=== PATIENT | female | born 1975 | race Hispanic/Latino ===

== ENCOUNTER 2018-03-03 13:36 | Outpatient (CLI) | payer BC | END 2018-03-03 13:37 | disposition home or self-care (01) | LOC: BICMAMMO 13:36 | PROVIDERS: ATTEND Physician Assistant | DX: Z12.31 Encounter for screening mammogram for malignant neoplasm of breast (principal); R92.1 Mammographic calcification found on diagnostic imaging of breast | CPT/HCPCS: 77063; 77067 ==

== ENCOUNTER 2018-03-04 10:44 | Outpatient (CLI) | payer BC ==
--- NOTE | 2018-03-04 11:50 | ULT ---
PELVIC ULTRASOUND: DATE: 03/04/18. HISTORY: Pelvic pain. COMPARISON: 01/03/10. FINDINGS: Multiple transabdominal and endovaginal sonographic imaging of the pelvis are obtained. The uterus again demonstrates a normal sonographic appearance measuring 10.4 cm x 5 cm x 6 cm. The endometrial stripe measures 1 cm in thickness, which is within normal limits for a normal menstru ating female patient. No fluid or fluid collection is seen in the endometrial canal. The right ovary measures 3 cm x 1.5 cm x 2.2 cm with the left ovary measuring 3.3 cm x 4.4 cm x 2.9 c m. There is a 2.7 cm anechoic well-circumscribed cystic structure within the left ovary demonstrating ch aracteristics suggestive of a small ovarian cyst. Doppler evaluation of each ovary with spectral analysis and color flow evaluation demonstrates arteri al and venous flow in each ovary. No free fluid is seen in the cul-de-sac. IMPRESSION: 1. Small left ovarian cyst. 2. Normal-appearing uterus and right ovary. POS: [facility]
== END 2018-03-04 10:45 | disposition home or self-care (01) ==
LOC: EKG 10:44
PROVIDERS: ATTEND Physician Assistant
DX: R07.9 Chest pain, unspecified (principal); R10.2 Pelvic and perineal pain; N83.202 Unspecified ovarian cyst, left side
CPT/HCPCS: 76856; 93017

== ENCOUNTER 2018-04-17 09:07 | Emergency (ER) | payer BC | END 2018-04-17 09:46 | disposition home or self-care (01) | LOC: ERS 09:07 | DX: J40 Bronchitis, not specified as acute or chronic (principal); E11.9 Type 2 diabetes mellitus without complications; Z79.84 Long term (current) use of oral hypoglycemic drugs | CPT/HCPCS: 99283 ==

== ENCOUNTER 2018-04-20 12:30 | Outpatient (CLI) | payer BC ==
--- NOTE | 2018-04-20 13:58 | RAD ---
CHEST TWO VIEWS: HISTORY: Cough. Bronchitis. COMPARISON: 05/30/2013 FINDINGS: Heart size and mediastinum are within normal limits. Lungs are clear of infiltrates. No significant bony findings. IMPRESSION: No active intrathoracic disease. POS: [facility]
== END 2018-04-20 12:31 | disposition home or self-care (01) ==
LOC: BICRAD 12:30
PROVIDERS: ATTEND Physician Assistant
DX: J40 Bronchitis, not specified as acute or chronic (principal)
CPT/HCPCS: 71046

== ENCOUNTER 2018-07-14 20:24 | Emergency (ER) | payer BC ==
--- NOTE | 2018-07-14 21:32 | RAD ---
TWO VIEWS CHEST 07/14/18 COMPARISON: 04/20/18 HISTORY: Cough. FINDINGS: There is no pneumothorax, pleural fluid, focal consolidation or alveolar edema. Heart and mediastinal contours appear grossly unremarkable. IMPRESSION: No acute findings. POS: [facility]
--- NOTE | 2018-07-14 22:50 | RAD ---
FRONTAL AND LATERAL IMAGING OF THE NECK 07/14/18 COMPARISON: None. HISTORY: Evaluate for foreign body. FINDINGS: Frontal and lateral imaging o the neck demonstrate no radiopaque foreign body. Epiglottis not well as sessed as it abuts and/or is obscured by soft tissue density in the submandibular region. IMPRESSION: No radiopaque foreign body identified. POS: [facility]
== END 2018-07-14 23:59 | disposition home or self-care (01) ==
LOC: ERS 20:24
DX: R05 Cough (principal); E11.9 Type 2 diabetes mellitus without complications
CPT/HCPCS: 70360; 71046; 87081; 87430

== ENCOUNTER 2018-08-20 07:57 | Outpatient (CLI) | payer BC ==
--- NOTE | 2018-08-20 09:18 | ULT ---
COMPLETE ABDOMEN SONOGRAM: HISTORY: Abdominal pain. FINDINGS: The gallbladder has a normal appearance without evidence of stones. The common duct is 0.4 cm. The liver is diffusely echogenic without focal mass or intrahepatic biliary dilatation. No free fluid. The spleen, kidneys, and visualized portions of the abdominal aorta, IVC, and pancreas have a normal sonographic appearance. IMPRESSION: 1. No evidence of gallstones or biliary obstruction. 2. Hepatosteatosis. POS: [facility]
--- NOTE | 2018-08-20 10:25 | ULT ---
ELVIC ULTRASOUND: HISTORY: Pelvic pain. FINDINGS: Real-time imaging of the pelvis was obtained both transabdominally as well as with an endovaginal pro be. This shows a uterus measuring 4.7 x 5.5 x 9.3 cm. Endometrium measures in the 7 mm range. The right ovary demonstrates a slightly elongated slightly irregularly shaped cyst measuring 2.6 x 2. 8 cm. The left ovary is normal in appearance. There is a small follicle involving the left ovary. DOPPLER EVALUATION WITH SPECTRAL ANALYSIS: Normal flow is shown to the adnexa. IMPRESSION: 1. A 2.6 x 2.8 cm right ovarian cyst. 2. Incidental note is made of a small nabothian cyst. POS: [facility]
== END 2018-08-20 07:58 | disposition home or self-care (01) ==
LOC: BICULT 07:57
PROVIDERS: ATTEND Physician Assistant
DX: R10.30 Lower abdominal pain, unspecified (principal); K76.0 Fatty (change of) liver, not elsewhere classified; N83.201 Unspecified ovarian cyst, right side
CPT/HCPCS: 76700; 76856

== ENCOUNTER 2019-07-12 15:25 | Emergency (ER) | payer BC ==
[2019-07-12] MEDS ORDERED: Iopamidol-370 76% 500 ML 1 ML ONE (15:30)
--- NOTE | 2019-07-12 16:20 | ULT ---
Ultrasound of theright upper quadrant: 07/12/2019 COMPARISON:Abdominal ultrasound 08/20/2018 HISTORY:Nausea vomiting and diarrhea TECHNIQUE: Multiplanar grayscale sonographic imaging of theright upper quadrant FINDINGS:Hepatic parenchyma is mildly heterogeneous and echogenic, which may signify steatosis. No ga llbladder wall thickening or pericholecystic fluid. No gallstones are noted. Right kidney measures 13.7 cm in craniocaudal dimension and demonstrates no stone or mass. Minimal pr ominence of the intrarenal collecting system is noted, similar when compared to the prior examination. The pancreas is obscured by bowel gas. The common bile duct measures 2-3 mm, within normal limits. IMPRESSION:No evidence for cholelithiasis, cholecystitis, or biliary dilatation.
[2019-07-12 16:30] LABS: #Eosinphils 0.2 thou/uL (0.0-0.7); #Lymphocytes 2.2 thou/uL (1.20-3.40); #Monocytes 0.4 thou/uL (0.11-0.59); #Neutrophils 5.3 thou/uL (1.40-6.50); %Basophils 0.5 % (0.0-1.0); %Eosinophils 2.4 % (0.0-10.0); %Lymphocytes 27.2 % (21.0-51.0); %Monocytes 4.3 % (0.0-10.0); %Neutrophils 65.5 % (42.0-75.0); Hemoglobin 10.6 g/dL (12.0-16.0); Mean Corpuscular HGB CONC 32.2 g/dL (32.0-36.0); Mean Corpuscular Hemoglobin 19.3 pg (27.0-31.0); Mean Corpuscular Volume 59.8 fL (78.0-98.0); Mean Platelet Volume 7.2 fL (7.4-10.4); Platelet Count 169 thou/uL (130-400); RBC Distribution Width 18.3 % (11.5-14.5); Red Blood Cell (RBC) Count 5.53 mill/uL (4.20-5.40); White Blood Cell (WBC) Count 8.1 thou/uL (4.8-10.8)
[2019-07-12 16:33] LABS: BHCG - Serum Negative (NEGATIVE); Pregs Control Background? CLEAR/WHITE (CLR/WHITE); Pregs Control Bar Appear? YES (CONTROL BAR)
[2019-07-12 16:46] LABS: ALT (SGPT) 26 U/L (8-55); AST (SGOT) 16 U/L (5-34); Albumin 4.2 g/dL (3.5-5.0); Alkaline Phosphatase 123 U/L (40-110); Anion Gap 15 mmol/L (10-20); BUN (Urea Nitrogen) 8 mg/dL (7.0-18.7); Bilirubin, Total 0.4 mg/dL (0.2-1.2); CK (CPK) 41 U/L (29-168); Calc. Creatinine Clearance 0 mL/min (70-130); Calcium 9.6 mg/dL (7.8-10.44); Carbon Dioxide 26 mmol/L (22-29); Chloride 96 mmol/L (98-107); Estimated GFR-MDRD 79; Globulin 3.5 g/dL (2.4-3.5); Glucose 366 mg/dL (70-105); Lipase 35 U/L (8-78); Protein, Total 7.7 g/dL (6.0-8.3); Sodium 133 mmol/L (136-145)
[2019-07-12 17:06] LABS: MDiff Complete? YES; Microcytosis MODERATE=15-30 cells (100X) (0-5/hpf); Platelet Morphology Comment Appears Adequate; Polychromasia SLIGHT = 2-3 cells (100X) (0-2/hpf); Reflex for Review?? YES; Stomatocytes SLIGHT = 2-5 cells (100X) (0-1/hpf)
[2019-07-12] MEDS ORDERED: Ondansetron ODT 4 MG TAB ONE (18:36)
--- NOTE | 2019-07-12 18:49 | RAD ---
Exam: Chest one view HISTORY:Chest pain. Comparison: 07/14/2018 FINDINGS: Cardiac silhouette: Normal Aorta: Unremarkable Pulmonary vessels: Normal Costophrenic angles: Clear LUNGS: No masses or consolidation. Diminished lung volumes, likely due to a poor inspiratory effort. Pneumothorax: None Osseous abnormalities: None IMPRESSION: No acute cardiopulmonary process.
[2019-07-12] MEDS ORDERED: Mag-Al 1200 mg/1200 mg/30 ML UDCUP ONE (19:44)
[2019-07-12] MEDS ORDERED: Lidocaine Viscous Sol 2% 15 ml UD Cup ONE (19:44)
[2019-07-12 19:52] LABS: Bilirubin Negative (Negative); Blood, Urine Negative (Negative); Clarity Clear (Clear); Glucose, Urine (Dipstick) Greater than 1000 mg/dL (Negative); Leukocyte 500 Leu/uL (Negative); Nitrite Negative (Negative); Protein, Urine (Dipstick) 10 mg/dL (Neg-Trace); Urobilinogen Normal mg/dL (Less than 2); WBC/HPF Greater than 50 HPF (0-3)
[2019-07-12 19:58] LABS: Bacteria/HPF 1+ HPF (None Seen); RBC/HPF 0-3 HPF (0-3)
--- NOTE | 2019-07-12 21:50 | CT ---
EXAM: CT ABDOMEN AND PELVIS HISTORY: Right upper quadrant pain COMPARISON: None. Procedure: Multiple contiguous axial images were obtained and a CT of the abdomen and pelvis with IV contrast. C oronal reformats were performed. FINDINGS: Lower Chest: Dependent atelectatic change Vessels: Normal caliber aorta Heart: Normal heart size Abdomen: Portal vein:Patent Gallbladder: No calcified gallstones. Normal caliber wall. Liver: within normal limits. Pancreas: within normal limits. Spleen: within normal limits. Adrenals: within normal limits. Kidneys: Symmetric enhancement. No obstructive uropathy. Peritoneum: No ascites or free air, no fluid collection. Bowel: Limited evaluation due to the lack of oral contrast administration. No evidence of bowel obstr uction. Ileocecal junction is unremarkable. Normal caliber appendix. Scattered fecal material in a nondistended, nondilated colon. Diverticulosis. No diverticulitis. Mesentery and Retroperitoneum: No enlarged mesenteric or retroperitoneal lymph nodes. Abdominal Wall: Umbilical hernia containing mesenteric fat. Pelvis: Reproductive Organs: Uterus and left adnexa are unremarkable. Hypodensity in the right adnexa measuri ng 3.0 x 2.8 cm with an attenuation coefficient of 25 Hounsfield units. Complex right ovarian cyst is favored. Pelvis: No mass, lymphadenopathy, free air or free fluid. Bladder: within normal limits. Bones: within normal limits. IMPRESSION: 1. Complex right ovarian cyst. Follow-up ultrasound in 8 weeks to ensure resolution 2. Normal caliber appendix.
== END 2019-07-12 22:37 | disposition home or self-care (01) ==
LOC: ERS 15:25
DX: N39.0 Urinary tract infection, site not specified (principal); N83.201 Unspecified ovarian cyst, right side; E11.9 Type 2 diabetes mellitus without complications; E78.00 Pure hypercholesterolemia, unspecified
CPT/HCPCS: 36415; 71045; 74177; 76705; 80053; 81003; 81015; 82550; 83690; 84484; 84703; 85025; 85060; 93005; 96372; J0500; Q0162; Q9967

== ENCOUNTER 2019-08-03 19:46 | Emergency (ER) | payer BC ==
[2019-08-03] MEDS ORDERED: Ondansetron PF 4 MG/2 ML Vial ONE (20:21)
[2019-08-03 20:24] LABS: Bilirubin Negative (Negative); Blood, Urine Negative (Negative); Clarity Clear (Clear); Glucose, Urine (Dipstick) Greater than 1000 mg/dL (Negative); Leukocyte Negative Leu/uL (Negative); Nitrite Negative (Negative); Protein, Urine (Dipstick) Negative (Neg-Trace); Urobilinogen Normal mg/dL (Less than 2)
[2019-08-03 20:25] LABS: Pregnancy Test - Urine (BHCG) Negative (Negative); Pregu Control Background? CLEAR/WHITE (CLR/WHITE); Pregu Control Bar Appear? YES (CONTROL BAR); Specific Gravity 1.023 (1.002-1.036)
[2019-08-03 20:41] LABS: #Eosinphils 0.2 thou/uL (0.0-0.7); #Lymphocytes 1.8 thou/uL (1.20-3.40); #Monocytes 0.3 thou/uL (0.11-0.59); #Neutrophils 4.6 thou/uL (1.40-6.50); %Basophils 0.6 % (0.0-1.0); %Eosinophils 2.9 % (0.0-10.0); %Lymphocytes 25.7 % (21.0-51.0); %Monocytes 4.7 % (0.0-10.0); %Neutrophils 66.2 % (42.0-75.0); Hemoglobin 11.1 g/dL (12.0-16.0); Mean Corpuscular HGB CONC 33.3 g/dL (32.0-36.0); Mean Corpuscular Hemoglobin 20.3 pg (27.0-31.0); Mean Corpuscular Volume 60.9 fL (78.0-98.0); Mean Platelet Volume 6.9 fL (7.4-10.4); Platelet Count 207 thou/uL (130-400); RBC Distribution Width 17.7 % (11.5-14.5); Red Blood Cell (RBC) Count 5.48 mill/uL (4.20-5.40); White Blood Cell (WBC) Count 6.9 thou/uL (4.8-10.8)
[2019-08-03 21:03] LABS: ALT (SGPT) 31 U/L (8-55); AST (SGOT) 26 U/L (5-34); Albumin 4.4 g/dL (3.5-5.0); Alkaline Phosphatase 118 U/L (40-110); Anion Gap 18 mmol/L (10-20); BUN (Urea Nitrogen) 12 mg/dL (7.0-18.7); Bilirubin, Total 0.3 mg/dL (0.2-1.2); Calc. Creatinine Clearance 0 mL/min (70-130); Calcium 9.4 mg/dL (7.8-10.44); Carbon Dioxide 22 mmol/L (22-29); Chloride 96 mmol/L (98-107); Estimated GFR-MDRD 79; Globulin 4.1 g/dL (2.4-3.5); Glucose 361 mg/dL (70-105); Lipase 60 U/L (8-78); Potassium 3.8 mmol/L (3.5-5.1); Protein, Total 8.5 g/dL (6.0-8.3); Sodium 132 mmol/L (136-145)
[2019-08-03] MEDS ORDERED: Lidocaine Viscous Sol 2% 15 ml UD Cup ONE ×2 (21:06→23:26)
[2019-08-03] MEDS ORDERED: Nitroglycerin 2% Ointment 1 INCH/1 GM Packet ONE (21:06)
[2019-08-03] MEDS ORDERED: Mag-Al 1200 mg/1200 mg/30 ML UDCUP ONE ×2 (21:06→23:26)
--- NOTE | 2019-08-03 21:06 | RAD ---
Chest AP view INDICATION: Epigastric abdominal pain COMPARISON: July 12, 2019 FINDINGS: Lungs:The lungs are clear Cardiac silhouette:The cardiomediastinal silhouette appears within normal limits. Pulmonary vasculature:Normal Pleural spaces:No pleural effusion or pneumothorax is demonstrated. Upper abdomen:No abnormality seen. Osseous structures: No acute osseous abnormality. Additional findings:None. IMPRESSION: No acute cardiopulmonary abnormality.
--- NOTE | 2019-08-03 21:33 | ULT ---
RIGHT UPPER QUADRANT ULTRASOUND CLINICAL HISTORY: Right upper quadrant pain and nausea. COMPARISON: None FINDINGS: Liver:Fatty liver Intrahepatic bile ducts: No intrahepatic or extrahepatic biliary dilation.; Common bile duct: 4.3 mm. Gallbladder: Normal appearing. Jj's sign:None Main portal vein:Patent with hepatopedal flow. Pancreas:Obscured Right kidney: Right kidney measures 13.0 x 4.1 x 5.3 cm. No focal renal lesion or hydronephrosis. Additional findings: None. IMPRESSION: Fatty liver
[2019-08-03] MEDS ORDERED: Pantoprazole 40 MG VIAL ONE (23:26)
== END 2019-08-04 00:48 | disposition home or self-care (01) ==
LOC: ERS 19:46
DX: K21.9 Gastro-esophageal reflux disease without esophagitis (principal); E11.9 Type 2 diabetes mellitus without complications; E78.00 Pure hypercholesterolemia, unspecified; Z79.84 Long term (current) use of oral hypoglycemic drugs
CPT/HCPCS: 36415; 71045; 76705; 80053; 81003; 81025; 83690; 84484; 85025; 93005; 96372; 96374; 96375; C9113; J0500; J2405

== ENCOUNTER 2019-08-20 00:43 | Inpatient (IN) | payer BC ==
[2019-08-20 01:20] LABS: Mean Corpuscular HGB CONC 33.6 g/dL (32.0-36.0); Mean Corpuscular Hemoglobin 20.2 pg (27.0-31.0); Mean Corpuscular Volume 60.1 fL (78.0-98.0); RBC Distribution Width 16.9 % (11.5-14.5); Red Blood Cell (RBC) Count 5.45 mill/uL (4.20-5.40); White Blood Cell (WBC) Count 6.2 thou/uL (4.8-10.8)
[2019-08-20 01:32] LABS: #Eosinphils 0.1 thou/uL (0.0-0.7); #Lymphocytes 1.2 thou/uL (1.20-3.40); #Monocytes 0.3 thou/uL (0.11-0.59); #Neutrophils 4.6 thou/uL (1.40-6.50); %Basophils 0.2 % (0.0-1.0); %Eosinophils 1.6 % (0.0-10.0); %Lymphocytes 19.7 % (21.0-51.0); %Monocytes 4.3 % (0.0-10.0); %Neutrophils 74.2 % (42.0-75.0); Anisocytosis SLIGHT = 6-15 cells (100X) (0-5/hpf); MDiff Complete? YES; Mean Platelet Volume 8.1 fL (7.4-10.4); Platelet Count 178 thou/uL (130-400); Platelet Morphology Comment Appears Adequate
[2019-08-20 01:33] LABS: ALT (SGPT) 29 U/L (8-55); AST (SGOT) 19 U/L (5-34); Albumin 4.4 g/dL (3.5-5.0); Alkaline Phosphatase 118 U/L (40-110); Anion Gap 24 mmol/L (10-20); BUN (Urea Nitrogen) 8 mg/dL (7.0-18.7); Bilirubin, Total 0.3 mg/dL (0.2-1.2); CK (CPK) 39 U/L (29-168); Calc. Creatinine Clearance 0 mL/min (70-130); Calcium 9.5 mg/dL (7.8-10.44); Carbon Dioxide 11 mmol/L (22-29); Chloride 100 mmol/L (98-107); Estimated GFR-MDRD 57; Globulin 3.9 g/dL (2.4-3.5); Lipase 45 U/L (8-78); Protein, Total 8.3 g/dL (6.0-8.3); Sodium 131 mmol/L (136-145)
[2019-08-20 01:39] LABS: Glucose 735 mg/dL (70-105)
[2019-08-20 01:45] LABS: Bilirubin Negative (Negative); Blood, Urine Negative (Negative); Clarity Clear (Clear); Glucose, Urine (Dipstick) Greater than 1000 mg/dL (Negative); Leukocyte 250 Leu/uL (Negative); Nitrite Negative (Negative); Protein, Urine (Dipstick) Negative (Neg-Trace); Squamous Epithelial 0-3 HPF (0-3); Urobilinogen Normal mg/dL (Less than 2); Yeast-Budding 1+ HPF (None Seen)
[2019-08-20] MEDS ORDERED: Aspirin Chewable 81 MG TAB ONE (01:45)
[2019-08-20] MEDS ORDERED: Acetaminophen 500 MG TAB ONE (01:45)
[2019-08-20 01:46] LABS: Bacteria/HPF 1+ HPF (None Seen)
[2019-08-20] MEDS ORDERED: Ondansetron PF 4 MG/2 ML Vial ONE (02:19)
[2019-08-20] MEDS ORDERED: Insulin Regular 100 units/100 ml in NS IVPB SCH (02:30)
[2019-08-20] MEDS ORDERED: NS 0.9% w/ 20 MEQ KCL 1,000 ML IV SCH (02:30)
[2019-08-20] MEDS ORDERED: cefTRIAXone\\ROCEPHIN 2 GM VIAL ONE (02:35)
[2019-08-20] MEDS ORDERED: CCU Electrolyte Replacement 1 EACH IVPB ONE (03:14)
[2019-08-20] MEDS ORDERED: NS 0.9% w/ 20 MEQ KCL 1,000 ML IV PRN ×2 (03:14)
[2019-08-20] MEDS ORDERED: Sodium Chloride 0.9% 1,000 ML IV PRN ×4 (03:14)
[2019-08-20] MEDS ORDERED: Dextrose 5 %-0.45 % NaCl 1,000 ML IV PRN (03:14)
[2019-08-20] MEDS ORDERED: D5 1/2 NS w/20 mEq KCL 1,000 ML IV PRN (03:14)
[2019-08-20] MEDS ORDERED: Vancomycin HCl 1.75 GM in Sodium Chloride 0.9% 500 ML IVPB SCH (03:15)
[2019-08-20] MEDS ORDERED: cefTRIAXone\\ROCEPHIN 2 GM in Sodium Chloride 0.9% 100 ML IVPB SCH (03:15)
[2019-08-20] MEDS ORDERED: HUMULIN R 100 UNITS in Sodium Chloride 0.9% 100 ML IVPB SCH (03:15)
[2019-08-20] MEDS ORDERED: Potassium Chloride 40 MEQ in Sodium Chloride 0.9% 250 ML 250 ML IVPB PRN (03:19)
[2019-08-20] MEDS ORDERED: CCU ELECTROLYTE REPLACEMENT PROTOCOL FS PRN (03:19)
[2019-08-20] MEDS ORDERED: PHOS-NAK 1 PKT PACK PO PRN ×2 (03:19)
[2019-08-20] MEDS ORDERED: Potassium Chloride 20 MEQ TAB PO PRN (03:19)
[2019-08-20] MEDS ORDERED: Potassium Phosphate 12 MMOL in Sodium Chloride 0.9% 250 ML 250 ML IV PRN (03:19)
[2019-08-20] MEDS ORDERED: Potassium Phosphate 9 MMOL in Sodium Chloride 0.9% 100 ML IVPB PRN (03:19)
[2019-08-20] MEDS ORDERED: Magnesium Oxide 400 MG TAB PO PRN ×2 (03:19)
[2019-08-20] MEDS ORDERED: Potassium Chloride 40 MEQ in Premix Bag 1 BAG IVPB PRN (03:19)
[2019-08-20] MEDS ORDERED: Potassium Phosphate 15 MMOL in Sodium Chloride 0.9% 250 ML 250 ML IV PRN (03:19)
[2019-08-20] MEDS ORDERED: Magnesium 2 GM/50 ML 2 GM in Premix Bag 1 BAG IVPB PRN (03:19)
[2019-08-20] MEDS ORDERED: Sodium Chloride 0.9% 1,000 ML IV SCH (03:30)
--- NOTE | 2019-08-20 04:17 | HP ---
CHIEF COMPLAINT: Shortness of breath and chest pain. HISTORY OF PRESENT ILLNESS: Ms. Tijerina is a 44-year-old female with past medical history of diabetes mellitus, type 2 ? taking metformin, presents to the emergency room with shortness of breath, chest pain, and vomiting that started earlier today. On workup in the emergency room, the patient was found in diabetic ketoacidosis with a glucose of 735, anion gap is 24, the patient was found to have urinary tract infection, lactic acid of 5.0. The patient was on IV fluids, insulin, septic workup done in the ED, and the patient was started on IV antibiotics, ceftriaxone and vancomycin. The patient is being admitted to the hospital for further management. PAST MEDICAL HISTORY: 1. Diabetes mellitus, type 2. 2. Hyperlipidemia. PAST SURGICAL HISTORY: 1. Tubal ligation. 2. section x4. FAMILY HISTORY: Father has diabetes mellitus. SOCIAL HISTORY: Denies smoking. Drinks alcohol socially. HOME MEDICATIONS: Please see home medication reconciliation form for updated medications. ALLERGIES: NO KNOWN ALLERGIES. REVIEW OF SYSTEMS: Review of 14 systems negative except what is mentioned in History of Present Illness. PHYSICAL EXAMINATION: GENERAL: The patient is awake, alert, in moderate distress. VITAL SIGNS: Blood pressure 122/66, temperature is 99.7, pulse is 100, respiratory rate is 24. HEAD AND NECK: Normocephalic, atraumatic. NECK: Supple. No JVD. CHEST: Fair bilateral air entry. HEART: S1, S2. Regular. ABDOMEN: Distended. Bowel sounds present. NEUROLOGIC: Awake, alert, oriented x3. PSYCHIATRIC: Normal mood. EXTREMITIES: No clubbing, no cyanosis. GENITOURINARY: No suprapubic tenderness. No flank tenderness. LABORATORY DATA: As mentioned above in the History of Present Illness. ASSESSMENT: 1. Diabetic ketoacidosis. 2. Sepsis. 3. Acute urinary tract infection. 4. Lactic acidosis. 5. Hyperlipidemia. PLAN: 1. Admit to ICU. 2. Continue with IV fluids. 3. Insulin. 4. Septic workup including blood cultures, urine cultures. 5. IV antibiotics, awaiting culture results. 6. Reconcile home medications. 7. DVT prophylaxis as appropriate. 8. Expected length of stay, 2 midnights or more. Job ID: [id number]
[2019-08-20 04:54] LABS: ALT (SGPT) 22 U/L (8-55); AST (SGOT) 17 U/L (5-34); Albumin 3.5 g/dL (3.5-5.0); Alkaline Phosphatase 104 U/L (40-110); Anion Gap 16 mmol/L (10-20); BUN (Urea Nitrogen) 7 mg/dL (7.0-18.7); Bilirubin, Total 0.2 mg/dL (0.2-1.2); Calc. Creatinine Clearance 0 mL/min (70-130); Calcium 8.2 mg/dL (7.8-10.44); Carbon Dioxide 13 mmol/L (22-29); Chloride 108 mmol/L (98-107); Estimated GFR-MDRD 87; Globulin 3.6 g/dL (2.4-3.5); Glucose 387 mg/dL (70-105); Potassium 3.7 mmol/L (3.5-5.1); Protein, Total 7.1 g/dL (6.0-8.3); Sodium 133 mmol/L (136-145)
[2019-08-20 04:56] LABS: Hemoglobin 9.5 g/dL (12.0-16.0); Mean Corpuscular HGB CONC 34.2 g/dL (32.0-36.0); Mean Corpuscular Hemoglobin 20.7 pg (27.0-31.0); Mean Corpuscular Volume 60.6 fL (78.0-98.0); Platelet Count 164 thou/uL (130-400); RBC Distribution Width 16.6 % (11.5-14.5); Red Blood Cell (RBC) Count 4.61 mill/uL (4.20-5.40); White Blood Cell (WBC) Count 6.6 thou/uL (4.8-10.8)
[2019-08-20 05:20] LABS: #Eosinphils 0.1 thou/uL (0.0-0.7); #Monocytes 0.4 thou/uL (0.11-0.59); #Neutrophils 4.1 thou/uL (1.40-6.50); %Basophils 0.5 % (0.0-1.0); %Eosinophils 1.8 % (0.0-10.0); %Lymphocytes 30.2 % (21.0-51.0); %Monocytes 5.4 % (0.0-10.0); %Neutrophils 62.1 % (42.0-75.0); Hypochromia MODERATE=16-30 cells (100X) (0-5/hpf); MDiff Complete? YES; Mean Platelet Volume 8.2 fL (7.4-10.4); Platelet Morphology Comment Appears Adequate
[2019-08-20 05:33] VITALS: BMI 33.3
[2019-08-20] MEDS ORDERED: Cefepime 2 GM in Sodium Chloride 0.9% 100 ML IVPB SCH (06:00)
[2019-08-20 06:34] LABS: Calcium 8.1 mg/dL (7.8-10.44); Chloride 108 mmol/L (98-107); Sodium 135 mmol/L (136-145)
[2019-08-20 06:35] LABS: Glucose 312 mg/dL (70-105)
[2019-08-20 06:36] LABS: Anion Gap 15 mmol/L (10-20); Carbon Dioxide 16 mmol/L (22-29)
[2019-08-20 06:38] LABS: Calc. Creatinine Clearance 124 mL/min (70-130); Estimated GFR-MDRD Greater than 90
[2019-08-20 06:39] LABS: BUN (Urea Nitrogen) 6 mg/dL (7.0-18.7)
[2019-08-20 07:05] LABS: Hemoglobin 9.1 g/dL (12.0-16.0); Mean Corpuscular HGB CONC 34.2 g/dL (32.0-36.0); Mean Corpuscular Hemoglobin 20.5 pg (27.0-31.0); Mean Platelet Volume 7.2 fL (7.4-10.4); Platelet Count 151 thou/uL (130-400); RBC Distribution Width 16.4 % (11.5-14.5); Red Blood Cell (RBC) Count 4.44 mill/uL (4.20-5.40); White Blood Cell (WBC) Count 7.3 thou/uL (4.8-10.8)
[2019-08-20 07:34] LABS: Lactic Acid 1.9 mmol/L (0.5-2.2)
[2019-08-20] MEDS ORDERED: Dextrose 50% Abboject 50 ML SYRINGE SLOW IVP PRN (09:05)
[2019-08-20] MEDS ORDERED: Dextrose 5% in Water 1,000 ML IV PRN (09:05)
[2019-08-20 09:17] LABS: Lactic Acid 1.7 mmol/L (0.5-2.2)
[2019-08-20 09:31] LABS: Hemoglobin A1c 12.3 % (4.0-6.0)
--- NOTE | 2019-08-20 09:36 | RAD ---
CHEST 1 VIEW: Date: 08/20/2019 HISTORY: Chest pain. COMPARISON: Radiograph dated 08/03/2019. FINDINGS: Lungs are clear. No pneumothorax. No effusion. Pulmonary arteries are mildly enlarged. IMPRESSION: Mild pulmonary hypertension. Otherwise unremarkable exam. POS: [facility]
[2019-08-20] MEDS: Insulin Glargine 12 UNITS in Pre-Filled Syringe 1 EACH SC SCH (11:08)
[2019-08-20] MEDS: Lisinopril 5 MG TAB PO SCH ×2 (11:13→15:15)
[2019-08-20 11:38] LABS: Anion Gap 14 mmol/L (10-20); BUN (Urea Nitrogen) 5 mg/dL (7.0-18.7); Calc. Creatinine Clearance 137 mL/min (70-130); Calcium 8.1 mg/dL (7.8-10.44); Carbon Dioxide 18 mmol/L (22-29); Chloride 110 mmol/L (98-107); Estimated GFR-MDRD Greater than 90; Glucose 159 mg/dL (70-105); Potassium 3.5 mmol/L (3.5-5.1); Sodium 138 mmol/L (136-145)
[2019-08-20] MEDS: HumaLOG 300 UNITS/3 ML VIAL SC SCH ×2 (12:02→17:13)
[2019-08-20] MEDS ORDERED: Cefdinir 300 MG CAP PO SCH (13:15)
[2019-08-20] MEDS: Acetaminophen 325 MG TAB PO PRN (13:19)
--- NOTE | 2019-08-20 14:29 | PDOC.HOSPP ---
- Subjective Encounter Date: 08/20/19 Encounter Time: 11:45 Subjective: pt up in bed no still complains of sharp pain and occasional chest tightness to her chest wall area. - Objective Vital Signs & Weight: Vital Signs (12 hours) Temp Pulse Resp BP Pulse Ox 08/20/19 12:00 99.7 F H 08/20/19 11:13 82 98/62 08/20/19 08:00 99.1 F 100 08/20/19 05:10 99.6 F 82 17 97 Weight Weight 159 lb 6.307 oz Most Recent Monitor Data Heart Rate from ECG 92 NIBP 120/74 NIBP BP-Mean 89 Respiration from ECG 17 SpO2 100 I&O: 08/19/19 08/20/19 08/21/19 06:59 06:59 06:59 Intake Total 1239.9 1853.1 Output Total 400 1175 Balance 839.9 678.1 Result Diagrams: 08/20/19 05:59 08/20/19 11:02 Additional Labs: Accuchecks 08/20/19 08/20/19 08/20/19 11:04 10:02 09:11 POC Glucose 166 H 218 H 204 H 08/20/19 08/20/19 08/20/19 08:19 07:15 06:02 POC Glucose 222 H 279 H 310 H 08/20/19 08/20/19 08/20/19 05:27 04:05 02:42 POC Glucose 363 H 409 H 526 H Hospitalist ROS - Review of Systems Cardiovascular: reports: chest pain Gastrointestinal: denies: nausea, vomiting, abdominal pain, diarrhea, constipation, melena, hematochezia, other Genitourinary: denies: dysuria, frequency, incontinence, hematuria, retention, other Musculoskeletal: denies: neck pain, shoulder pain, arm pain, back pain, hand pain, leg pain, foot pain, other - Medication Medications: Active Medications Generic Name Dose Route Start Last Admin Trade Name Freq PRN Reason Stop Dose Admin Acetaminophen 650 mg 08/20/19 13:14 08/20/19 13:19 Tylenol PO 650 mg Q6H PRN Administration Headache/Fever or Pain Cefdinir 300 mg 08/20/19 13:15 08/20/19 13:19 Omnicef PO 08/20/19 16:00 300 mg NOW YASHIRA Administration Insulin Glargine 12 units/ 0.12 mls @ 0 mls/hr 08/20/19 09:00 08/20/19 11:08 Miscellaneous Medication SC 0.12 mls QAM YASHIRA Administration Insulin Human Lispro 5 units 08/20/19 12:00 08/20/19 12:02 Humalog SC 5 unit TID-WM YASHIRA Administration Lisinopril 5 mg 08/20/19 09:00 08/20/19 11:13 Zestril PO Not Given DAILY YASHIRA - Exam Heart: negative: RRR, no murmur, no gallops, no rubs, normal peripheral pulses, irregular, diminshed peripheral pulses, murmur present, II/IV, III/IV Respiratory: negative: CTAB, no wheezes, no rales, no ronchi, normal chest expansion, no tachypnea, normal percussion, rales, rhonchi, tachypneic, wheezes Gastrointestinal: negative: soft, non-tender, non-distended, normal bowel sounds , no palpable masses, no hepatomegaly, no splenomegaly, no bruit, no guarding, no rigidity, tender to palpation, distended, diminished bowl sounds, voluntary guarding Extremities: negative: no cyanosis, no clubbing, no edema, 1+ LE edema, 2+ LE edema, clubbing Skin: negative: normal turgor, no lesions, no rashes, tenting Hosp A/P (1) DKA (diabetic ketoacidoses) Code(s): E11.10 - TYPE 2 DIABETES MELLITUS WITH KETOACIDOSIS WITHOUT COMA Status: Acute (2) Chest pain Code(s): R07.9 - CHEST PAIN, UNSPECIFIED Status: Acute (3) Obesity Code(s): E66.9 - OBESITY, UNSPECIFIED Status: Acute (4) Obesity (BMI 30.0-34.9) Code(s): E66.9 - OBESITY, UNSPECIFIED Status: Acute (5) Iron deficiency anemia Code(s): D50.9 - IRON DEFICIENCY ANEMIA, UNSPECIFIED Status: Acute - Plan will start her on lantus and sliding scale insulin. Her alc is 12. she is not compliant with her diet nor she is with her meds. will order trop, i think her chest pain is atypical. will start her on lisinopril. pt also states that at times she does not take her metformin. she was suppose to be started on another antidiabetic meds but she has not done so. she does complain of some abdomen pain at times. will monitor. will give her iv iron and po iron.
[2019-08-20 14:33] LABS: Base Excess-Venous -5.5 mmol/L (-2.0 to 3.0); Calcium, Ionized 1.16 mmol/L (See Comments:); Chloride 105 mmol/L (98-107); Hemoglobin - Calc 11.3 g/dL (12.0-16.0); Potassium 4.1 mmol/L (3.5-5.1); Sodium 136 mmol/L (138-145); vO2 Saturation-calc 87.1 % (60.0-85.0)
[2019-08-20] MEDS ORDERED: Iron Sucrose Complex 100 MG in Sodium Chloride 0.9% 100 ML IVPB SCH (14:45)
[2019-08-20] MEDS ORDERED: Iron, Sodium Ferric Gluconate 125 MG in Sodium Chloride 0.9% 100 ML IVPB SCH (14:45)
[2019-08-20 15:36] LABS: Troponin I 0.015 ng/mL (< 0.028)
[2019-08-20] MEDS ORDERED: Vancomycin HCl 1 GM in Sodium Chloride 0.9% 250 ML 250 ML IVPB SCH (18:00)
[2019-08-20 19:11] LABS: Troponin I Less than 0.010 ng/mL (< 0.028)
[2019-08-20] MEDS: Cefdinir 300 MG CAP PO SCH (21:09)
[2019-08-20] MEDS: Insulin Regular 300 UNITS/3 ML VIAL SC PRN (21:54)
[2019-08-20 23:05] LABS: Troponin I Less than 0.010 ng/mL (< 0.028)
[2019-08-21] MEDS ORDERED: cefTRIAXone\\ROCEPHIN 2 GM in Sodium Chloride 0.9% 100 ML IVPB SCH (03:00)
[2019-08-21 04:12] LABS: Phosphorus 3.3 mg/dL (2.3-4.7)
[2019-08-21 04:17] LABS: Anion Gap 10 mmol/L (10-20); BUN (Urea Nitrogen) 4 mg/dL (7.0-18.7); Calc. Creatinine Clearance 137 mL/min (70-130); Calcium 8.6 mg/dL (7.8-10.44); Carbon Dioxide 23 mmol/L (22-29); Chloride 107 mmol/L (98-107); Estimated GFR-MDRD Greater than 90; Glucose 221 mg/dL (70-105); Magnesium 1.7 mg/dL (1.6-2.6); Potassium 3.3 mmol/L (3.5-5.1); Sodium 137 mmol/L (136-145)
[2019-08-21] MEDS: Lisinopril 5 MG TAB PO SCH (07:32)
[2019-08-21] MEDS: HumaLOG 300 UNITS/3 ML VIAL SC SCH ×3 (07:34→18:09)
[2019-08-21] MEDS: Cefdinir 300 MG CAP PO SCH ×2 (07:34→20:24)
[2019-08-21] MEDS ORDERED: Iron, Sodium Ferric Gluconate 125 MG in Sodium Chloride 0.9% 100 ML IVPB SCH (08:00)
[2019-08-21] MEDS ORDERED: Iron Sucrose Complex 100 MG in Sodium Chloride 0.9% 100 ML IVPB SCH (08:00)
[2019-08-21] MEDS: Insulin Glargine 12 UNITS in Pre-Filled Syringe 1 EACH SC SCH (10:05)
--- NOTE | 2019-08-21 10:47 | CON ---
DATE OF CONSULTATION: 08/20/2019 SERVICE: Pulmonary Medicine. REASON FOR CONSULT: ICU patient. HISTORY OF PRESENT ILLNESS: The patient is a 44-year-old female with past medical history significant for type 2 diabetes mellitus. She was previously on metformin. That being said, she discontinued these medications roughly 6 months ago. She was in her usual state of health until she started having increasing polyuria, polydipsia, increasing appetite. Ultimately, she started developing nausea and vomiting. She had some difficulty breathing and chest pain. She presented to the Emergency Department, was discovered to be in DKA. She does have these chest discomfort flares whenever she is under stress, or whenever she gets emotional. She describes it is sharp discomfort in the anterior chest, which is not reproducible with palpation. Since she has been in the ICU, she was put on an insulin drip and her DKA is corrected. Her gap is now closed and she is in the process of being converted over to subcutaneous insulin. Otherwise, she has no specific complaints. PAST MEDICAL HISTORY: 1. Type 2 diabetes mellitus. 2. Dyslipidemia. PAST SURGICAL HISTORY: 1. Tubal ligation. 2. section x4. FAMILY HISTORY: Noncontributory. SOCIAL HISTORY: Negative for alcohol, tobacco, or illicit drug use. She has no exposure to chemicals, dust, asbestos, or tuberculosis. ALLERGIES: NO KNOWN DRUG ALLERGIES. MEDICATIONS: List of her inpatient medications was reviewed. Multiple updates were made at this time. REVIEW OF SYSTEMS: General, head, ears, eyes, nose, throat, cardiovascular, respiratory, GI, , musculoskeletal, neurologic, and skin are negative except as mentioned in the HPI. PHYSICAL EXAMINATION: VITAL SIGNS: Afebrile, pulse 79, blood pressure 117/69, respirations 17, and saturation 100%, currently on room air. GENERAL: The patient is awake and alert, in no apparent distress. LUNGS: Wonderful air entry with no prolonged expiratory phase, wheezing, crackles, or rhonchi present. HEART: Normal rate. Regular. ABDOMEN: Soft, nontender, and nondistended. Bowel sounds are positive. MUSCULOSKELETAL: No cyanosis or clubbing. There is trace edema in the bilateral lower extremities. NEUROLOGIC: Grossly nonfocal. LABORATORY DATA: WBC 7.3, hemoglobin 9.1 and stable, and platelets 151,000. D-dimer 0.5. Ferritin less than 2, iron 11. Lactate is normal, hemoglobin A1c 12.3. Anion gap 15, which has returned to normal limits. Bicarb continues to uptrend, creatinine 0.66. Basic metabolic profile is otherwise unremarkable. Liver function studies were previously unremarkable. Lactate was originally 5, but now normal. BNP and troponin are unremarkable. Leukocyte esterase is 240 and beta hydroxybutyric acid is 0.49. ASSESSMENT: 1. Starvation ketosis with hyperglycemia. 2. Type 2 diabetes mellitus, uncontrolled. 3. Chest pain, slightly atypical. 4. Urinary tract infection versus colonization. DISCUSSION AND PLAN: She has cleared her hyperglycemia profile. SQ insulin has already been initiated. She can be transitioned to the floor. I will put her on the telemetry unit, but ultimately, before discharge from the hospital, I think it would be reasonable to consider stress testing for her atypical chest discomfort. When she leaves the ICU, she will have no further requirements for inpatient Pulmonary/Critical Care opinion, and I will sign off. Please call with additional questions or concerns through time. 70 minutes have been devoted to this patient in various activities. I personally reviewed all imaging studies and laboratory data noted within this document. For fifty percent of this time, I was interacting with the patient at the bedside or coordinating care with the care team. For the remainder of the time I was immediately available to the patient in the hospital unit. Job ID: [id number] [facility]
--- NOTE | 2019-08-21 13:26 | PDOC.HOSPP ---
- Subjective Encounter Date: 08/21/19 Encounter Time: 11:55 Subjective: pt up in bed still complains of pain to her chest area, she feels it as a pressure. - Objective Vital Signs & Weight: Vital Signs (12 hours) Temp Pulse BP 08/21/19 07:32 80 126/72 08/21/19 04:00 98.2 F Weight Weight 159 lb 6.307 oz Most Recent Monitor Data Heart Rate from ECG 78 NIBP 126/72 NIBP BP-Mean 90 Respiration from ECG 14 SpO2 100 I&O: 08/20/19 08/21/19 08/22/19 06:59 06:59 06:59 Intake Total 1239.9 2573.1 240 Output Total 400 2875 250 Balance 839.9 -301.9 -10 Result Diagrams: 08/20/19 05:59 08/21/19 03:37 Additional Labs: Accuchecks 08/20/19 08/20/19 08/20/19 21:15 17:06 07:15 POC Glucose 266 H 195 H 279 H 08/20/19 08/20/19 06:02 05:27 POC Glucose 310 H 363 H Hospitalist ROS - Review of Systems Respiratory: denies: cough, dry, shortness of breath, hemoptysis, SOB with excertion, pleuritic pain, sputum, wheezing, other Cardiovascular: reports: chest pain. denies: palpitations, orthopnea, paroxysmal noc. dyspnea, edema, light headedness, other Gastrointestinal: denies: nausea, vomiting, abdominal pain, diarrhea, constipation, melena, hematochezia, other Genitourinary: denies: dysuria, frequency, incontinence, hematuria, retention, other - Medication Medications: Active Medications Generic Name Dose Route Start Last Admin Trade Name Freq PRN Reason Stop Dose Admin Acetaminophen 650 mg 08/20/19 13:14 08/20/19 13:19 Tylenol PO 650 mg Q6H PRN Administration Headache/Fever or Pain Cefdinir 300 mg 08/20/19 21:00 08/21/19 07:34 Omnicef PO 08/23/19 09:01 300 mg BID YASHIRA Administration Insulin Glargine 12 units/ 0.12 mls @ 0 mls/hr 08/20/19 09:00 08/21/19 10:05 Miscellaneous Medication SC 0.12 mls QAM YASHIRA Administration Insulin Human Lispro 5 units 08/20/19 12:00 08/21/19 13:16 Humalog SC 5 unit TID-WM YASHIRA Administration Insulin Human Regular 0 units 08/20/19 21:24 08/20/19 21:54 Humulin R SC 3 unit .BEDTIME SLIDING SC PRN Administration Bedtime Correctional Scale Lisinopril 5 mg 08/20/19 09:00 08/21/19 07:32 Zestril PO 5 mg DAILY YASHIRA Administration - Exam Neck: negative: supple, symmetric, no JVD, no thyromegaly, no lymphadenopathy, no carotid bruit, JVD Heart: negative: RRR, no murmur, no gallops, no rubs, normal peripheral pulses, irregular, diminshed peripheral pulses, murmur present, II/IV, III/IV Respiratory: negative: CTAB, no wheezes, no rales, no ronchi, normal chest expansion, no tachypnea, normal percussion, rales, rhonchi, tachypneic, wheezes Gastrointestinal: negative: soft, non-tender, non-distended, normal bowel sounds , no palpable masses, no hepatomegaly, no splenomegaly, no bruit, no guarding, no rigidity, tender to palpation, distended, diminished bowl sounds, voluntary guarding Hosp A/P (1) DKA (diabetic ketoacidoses) Code(s): E11.10 - TYPE 2 DIABETES MELLITUS WITH KETOACIDOSIS WITHOUT COMA Status: Acute (2) Chest pain Code(s): R07.9 - CHEST PAIN, UNSPECIFIED Status: Acute (3) Obesity Code(s): E66.9 - OBESITY, UNSPECIFIED Status: Acute (4) Obesity (BMI 30.0-34.9) Code(s): E66.9 - OBESITY, UNSPECIFIED Status: Acute (5) Iron deficiency anemia Code(s): D50.9 - IRON DEFICIENCY ANEMIA, UNSPECIFIED Status: Acute - Plan will start her on lantus and sliding scale insulin. Her alc is 12. she is not compliant with her diet nor she is with her meds. will order trop, i think her chest pain is atypical. will start her on lisinopril. pt also states that at times she does not take her metformin. she was suppose to be started on another antidiabetic meds but she has not done so. she does complain of some abdomen pain at times. will monitor. will give her iv iron and po iron. 08/20 i initially ordered a exercise stress test but was notified that the insurance will not cover since she has had a stress test done in 03/09. will get echo. her ekg was normal and her trops were negative. if her echo is normal i will sent her to cardiology to follow up. will ask nurses to teach her how to give insulin.
[2019-08-21] MEDS ORDERED: Albuterol Sulfate 1.25 MG/3 ML NEB ONE (19:31)
[2019-08-21] MEDS: Acetaminophen 325 MG TAB PO PRN (20:33)
[2019-08-21] MEDS: Insulin Regular 300 UNITS/3 ML VIAL SC PRN (20:36)
[2019-08-22 05:06] LABS: Anion Gap 12 mmol/L (10-20); BUN (Urea Nitrogen) 8 mg/dL (7.0-18.7); Calc. Creatinine Clearance 122 mL/min (70-130); Calcium 8.8 mg/dL (7.8-10.44); Carbon Dioxide 24 mmol/L (22-29); Chloride 105 mmol/L (98-107); Estimated GFR-MDRD Greater than 90; Glucose 242 mg/dL (70-105); Magnesium 1.8 mg/dL (1.6-2.6); Potassium 3.5 mmol/L (3.5-5.1); Sodium 137 mmol/L (136-145)
[2019-08-22 05:10] LABS: Phosphorus 4.3 mg/dL (2.3-4.7)
[2019-08-22 08:02] VITALS: TEMP 98
[2019-08-22] MEDS: Insulin Glargine 12 UNITS in Pre-Filled Syringe 1 EACH SC SCH (09:04)
[2019-08-22] MEDS: Cefdinir 300 MG CAP PO SCH (09:04)
[2019-08-22] MEDS: Lisinopril 5 MG TAB PO SCH (09:04)
[2019-08-22] MEDS: HumaLOG 300 UNITS/3 ML VIAL SC SCH ×2 (09:06→12:12)
[2019-08-22 14:43] VITALS: BP 125/72
--- NOTE | 2019-08-22 19:12 | DIS ---
DATE OF ADMISSION: 08/20/2019 DATE OF DISCHARGE: 08/22/2019 DISCHARGE DIAGNOSES: 1. Diabetic ketoacidosis, resolved. 2. Diabetes, uncontrolled. 3. Obesity. 4. Chest pain, resolved. 5. Iron deficiency anemia. HOSPITAL COURSE: The patient is a very pleasant 44-year-old female who initially presented to the hospital on , with complaints of shortness of breath and chest pain. The patient at this time was found to have a lactic acid of 5 and was found to be in DKA. A septic workup was pretty benign and negative. She was initially put in IMCU and was started on an insulin drip. Her insulin drip was transitioned to subcutaneus insulin. Her hemoglobin A1c was 12.3. I have advised the patient to diet, exercise, weight loss and healthy eating and insulin. The patient has been on insulin before. I have asked her to follow up with her primary to check her blood sugars 2 or 3 times a day and also write her numbers down. HOME MEDICATIONS: On discharge will be as of the following. She will be on: 1. Omnicef 300 mg twice a day. 2. Iron 325 daily. 3. Humulin 70/30 of 10 units twice a day. 4. Lisinopril 2.5 mg daily. LABORATORY DATA: Her troponin x3 were negative. Her EKG was normal. Her chest pain was very atypical. We went ahead and did an echocardiogram and her EF was 50% to 55%, with mild mitral regurgitation, mild tricuspid regurgitation. PHYSICAL EXAMINATION: VITAL SIGNS: Temperature 98.0, pulse 88, respirations 20, 95% on room air, blood pressure 117/66. GENERAL: She is awake, alert, and oriented x3. Does not appear in distress. CV: S1 and S2 present. No murmurs, rubs, gallops. Again, she will be discharged home. She will follow up with her primary. The patient has been advised to diet, exercise and weight loss and also advised her to take medications for constipation since I am going to be putting her on the iron. Job ID: [id number]
[2019-08-23] MEDS ORDERED: Ferrous Sulfate 325 MG TAB PO SCH (08:00)
[2019-08-23] MEDS ORDERED: Lisinopril 2.5 MG TAB PO SCH (09:00)
--- NOTE | 2019-08-23 21:22 | PQF ---
JESSICA JOHNSON ELEONORA [id number] CLINICAL DOCUMENTATION CLARIFICATION FORM: POST DISCHARGE Addendum to original discharge summary date: ____ Late entry note date: __ DATE:08/23/2019 ATTN: ELEONORA KOTHARI Please exercise your independent, professional judgment in responding to the clarification form. Clinical indicators are provided on the bottom of this form for your review Please check appropriate box(s) to clarify if the following diagnosis has been ruled in or ruled out: Acute urinary tract infection [ ] Ruled in diagnosis [ ] Continue to treat [ ] Resolved [ x ] Ruled out diagnosis [ ] Cannot rule out diagnosis [ ] Other diagnosis [ ] Unable to determine For continuity of documentation, please document condition throughout progress notes and discharge summary. Thank You. CLINICAL INDICATORS - SIGNS / SYMPTOMS / LABS Acute urinary tract infection-Documented in H&P on by Smith Alvarado MD Urinary tract infection versus colonization.-Documented in consultation report on by Chris Walter Urine leukocyte esterase-250 A,Urine RBC-4-6 A, Urine WBC-4-6 A,Urine Bacteria 1 + A, Urine yeast(budding)-1+ A-Documented in Laboratory Urine culture final-Streptococcus agalactiae Gp.B-Documented in Microbiology RISK FACTORS Urine leukocyte esterase-250 A,Urine RBC-4-6 A, Urine WBC-4-6 A,Urine Bacteria 1 + A, Urine yeast(budding)-1+ A-Documented in Laboratory Urine culture final-Streptococcus agalactiae Gp.B-Documented in Microbiology TREATMENTS Septic workup including blood cultures, urine cultures-Documented in H&P on by Smith Alvarado MD IV antibiotics awaiting cultures results-Documented in H&P on by Smith Mesa MD 2 gm IV -Documented in medication snapshot [employer] Win[employer] (This form is maintained as a part of the permanent medical record) 2014 [employer], [employer]. All Rights Reserved [email or web address]
--- NOTE | 2019-08-27 11:28 | EKG ---
Test Reason : Blood Pressure : / mmHG Vent. Rate : 111 BPM Atrial Rate : 111 BPM P-R Int : 144 ms QRS Dur : 082 ms QT Int : 358 ms P-R-T Axes : 040 000 003 degrees QTc Int : 486 ms Sinus tachycardia Otherwise normal ECG Confirmed by EDGAR VERDIN DO ([id number]), clinical editor BRITTNY COLÓN ([id number]) on 08/27/2019 11:28:13 AM Referred By: Confirmed By:EDGAR VERDIN DO
--- NOTE | 2019-08-27 11:28 | EKG ---
Test Reason : CP Blood Pressure : / mmHG Vent. Rate : 090 BPM Atrial Rate : 090 BPM P-R Int : 140 ms QRS Dur : 086 ms QT Int : 392 ms P-R-T Axes : 053 029 023 degrees QTc Int : 479 ms Normal sinus rhythm Normal ECG Confirmed by EDGAR VERDIN DO ([id number]), news videotape editor BRITTNY COLÓN ([id number]) on 08/27/2019 11:28:38 AM Referred By: Confirmed By:EDGAR VERDIN DO
--- NOTE | 2019-09-16 03:04 | PQF ---
ELIZABETHJESSICA KARISHMA [id number] CLINICAL DOCUMENTATION CLARIFICATION FORM: POST DISCHARGE Addendum to original discharge summary date: ____ Late entry note date: __ DATE: ATTN: Please exercise your independent, professional judgment in responding to the clarification form. Clinical indicators are provided on the bottom of this form for your review Please check appropriate box(s): [ x ] Lactic acidosis due to SIRS [ ] Lactic acidosis not due to SIRS [ ] Other diagnosis [ ] Unable to determine I n addition, please specify: Present on Admission (POA): [ ] Yes [ ] No [ ] Unable to determine For continuity of documentation, please document condition throughout progress notes and discharge summary. Thank You. CLINICAL INDICATORS - SIGNS / SYMPTOMS / LABS [id number] in ED on by Jade Jordan MD [id number] in ED on by Jade Jordan MD SIRS scoring:Dysuria/Frequency/urgency /UTI, Yes patient did meet at least 1 criteria for step A.,Respiratory rate >20 , Heart rate >90 , Yes , Patient did meet at least 2 criteria for Step B-Documented in ED on by Jade Jordan MD Diabetic Ketoacidosis; Cp Severe Sepsis W/ Septic Shock; UTI--Documented in ED on by Jade Jordan MD Diabetic ketoacidosis,Sepsis,Lactic acidosis,UTI-Documented in H&P on by Jf Alvarado MD Labs: lactic acid @ 0207 5.0 @ 0460 2.8 @ 0600 2.3 @ 0709 1.9 @ 0851 1.7 The patient was found to have a lactic acid of 5 and was found to be in DKA. A septic workup was pretty benign and negative-Documented in discharge summary on 08/21 by Oksana Hunter MD UTI ruled out-Documented in query response RISK FACTORS Diabetic Ketoacidosis-Documented in H&P on by Jf Alvarado MD TREATMENT Admit to ICU-Documented in H&P on by Jf Alvarado MD Continue with IV fluids-Documented in H&P on by Jf Alvarado MD Insulin-Documented in H&P on by Jf Alvarado MD Septic workup including blood cultures , urine cultures --Documented in H&P on by Jf Alvarado MD IV antibiotics--Documented in H&P on by Jf Alvarado MD (This form is maintained as a part of the permanent medical record) 2014 [employer], [facility]. All Rights Reserved [email or web address]
== END 2019-08-22 16:53 | disposition home or self-care (01) | DRG 637 ==
LOC: ERS 00:43 → CCU 05:18 → 2NO 05:35
PROVIDERS: ADMIT Internal Medicine; ATTEND Internal Medicine
DX: E11.10 Type 2 diabetes mellitus with ketoacidosis without coma (principal); R65.11 Systemic inflammatory response syndrome (SIRS) of non-infectious origin with acute organ dysfunction; E87.2 Acidosis; R07.9 Chest pain, unspecified; D50.9 Iron deficiency anemia, unspecified; I08.1 Rheumatic disorders of both mitral and tricuspid valves; E66.9 Obesity, unspecified; Z68.33 Body mass index [BMI] 33.0-33.9, adult; E78.5 Hyperlipidemia, unspecified; Z98.51 Tubal ligation status; Z79.84 Long term (current) use of oral hypoglycemic drugs; Z83.3 Family history of diabetes mellitus
CPT/HCPCS: 36415; 36416; 71045; 80048; 80053; 81003; 81015; 82010; 82330; 82550; 82728; 82803; 83036; 83540; 83605; 83690; 83735; 83880; 84100; 84484; 85025; 85379; 87040; 87077; 87086; 93005; 93306; 96361; 96365; 96366; 96367; 96368; 96375; J0692; J0696; J1815; J2405; J2916; J3370; J3480; J3490; J7050

== ENCOUNTER 2021-11-07 10:06 | Emergency (ER) | payer BC, SELFPAY ==
[2021-11-07 10:48] LABS: #Eosinphils 0.2 thou/uL (0.0-0.7); #Lymphocytes 1.3 thou/uL (1.20-3.40); #Monocytes 0.2 thou/uL (0.11-0.59); #Neutrophils 2.9 thou/uL (1.40-6.50); %Basophils 0.7 % (0.0-1.0); %Eosinophils 3.6 % (0.0-10.0); %Lymphocytes 28.1 % (21.0-51.0); %Monocytes 4.7 % (0.0-10.0); %Neutrophils 62.9 % (42.0-75.0); Hemoglobin 14.1 g/dL (12.0-16.0); Mean Corpuscular HGB CONC 34.7 g/dL (32.0-36.0); Mean Corpuscular Hemoglobin 24.9 pg (27.0-31.0); Mean Corpuscular Volume 71.8 fL (78.0-98.0); Mean Platelet Volume 10.5 fL (7.4-10.4); Platelet Count 161 thou/uL (130-400); RBC Distribution Width 16.7 % (11.5-14.5); Red Blood Cell (RBC) Count 5.66 mill/uL (4.20-5.40); White Blood Cell (WBC) Count 4.6 thou/uL (4.8-10.8)
[2021-11-07 11:09] LABS: ALT (SGPT) 40 U/L (8-55); AST (SGOT) 30 U/L (5-34); Alkaline Phosphatase 116 U/L (40-110); Anion Gap 18 mmol/L (10-20); BUN (Urea Nitrogen) 8 mg/dL (7.0-18.7); Bilirubin, Total 0.6 mg/dL (0.2-1.2); Calc. Creatinine Clearance 0 mL/min (70-130); Calcium 9.6 mg/dL (7.8-10.44); Carbon Dioxide 19 mmol/L (22-29); Chloride 99 mmol/L (98-107); Globulin 4.2 g/dL (2.4-3.5); Glucose 442 mg/dL (70-105); Protein, Total 8.2 g/dL (6.0-8.3); Sodium 132 mmol/L (136-145)
[2021-11-07 11:15] LABS: MDiff Complete? YES; Microcytosis MODERATE=15-30 cells (100X) (0-5/hpf); Platelet Morphology Comment Appears Adequate; Polychromasia SLIGHT = 2-3 cells (100X) (0-2/hpf)
== END 2021-11-07 12:57 | disposition home or self-care (01) ==
LOC: ERS 10:06
DX: L03.116 Cellulitis of left lower limb (principal); E11.621 Type 2 diabetes mellitus with foot ulcer; L97.529 Non-pressure chronic ulcer of other part of left foot with unspecified severity; E78.00 Pure hypercholesterolemia, unspecified; Z79.84 Long term (current) use of oral hypoglycemic drugs
CPT/HCPCS: 80053; 85025

== ENCOUNTER 2023-02-18 09:25 | Emergency (ER) | payer SELFPAY ==
[~2023-02-18 09:25] MED LIST: Iopamidol-370 76% 500 ML MDV (1 ML CHARGE) ONE
[2023-02-18] MEDS ORDERED: Morphine 4 MG/ML VIAL ONE (09:40)
[2023-02-18] MEDS ORDERED: Ondansetron PF 4 MG/2 ML Vial ONE (09:40)
[2023-02-18] MEDS ORDERED: Dicyclomine 20 MG/2 ML VIAL ONE (09:51)
[2023-02-18 09:59] LABS: #Eosinphils 0.2 thou/uL (0.0-0.7); #Monocytes 0.3 thou/uL (0.11-0.59); #Neutrophils 4.6 thou/uL (1.40-6.50); %Basophils 0.3 % (0.0-1.0); %Eosinophils 2.8 % (0.0-10.0); %Lymphocytes 24.7 % (21.0-51.0); %Monocytes 4.8 % (0.0-10.0); %Neutrophils 66.8 % (42.0-75.0); Hematocrit 42.3 % (36.0-47.0); Hemoglobin 14.7 g/dL (12.0-16.0); Mean Corpuscular HGB CONC 34.8 g/dL (32.0-36.0); Mean Corpuscular Hemoglobin 27.9 pg (27.0-31.0); Mean Corpuscular Volume 80.3 fl (78.0-98.0); Mean Platelet Volume 10.7 fL (7.4-10.4); Platelet Count 166 10x3/uL (130-400); RBC Distribution Width 13.9 % (11.5-14.5); Red Blood Cell (RBC) Count 5.27 mill/uL (4.20-5.40); White Blood Cell (WBC) Count 6.9 10x3/uL (4.8-10.8)
[2023-02-18 10:25] LABS: ALT (SGPT) 78 U/L (8-55); AST (SGOT) 54 U/L (5-34); Albumin 4.4 g/dL (3.5-5.0); Alkaline Phosphatase 89 U/L (40-110); Anion Gap 15 mmol/L (10-20); BUN (Urea Nitrogen) 9 mg/dL (7.0-18.7); Bilirubin, Total 0.5 mg/dL (0.2-1.2); Calc. Creatinine Clearance 0 mL/min (70-130); Calcium 9.9 mg/dL (7.8-10.44); Carbon Dioxide 24 mmol/L (22-29); Chloride 98 mmol/L (98-107); Estimated GFR 108; Globulin 3.6 g/dL (2.4-3.5); Glucose 229 mg/dL (70-105); Lipase 45 U/L (8-78); Potassium 4.1 mmol/L (3.5-5.1); Sodium 133 mmol/L (136-145)
[2023-02-18 10:45] LABS: Troponin I 0.014 ng/mL (< 0.028)
[2023-02-18 12:33] LABS: Bacteria/HPF None Seen HPF (None Seen); Bilirubin Negative (Negative); Blood, Urine Trace (Negative); CAUTI Indications for Culture Pelvic or flank pain; Clarity Clear (Clear); Glucose, Urine (Dipstick) 500 mg/dL (Negative); Ketone, Urine Negative (Negative); Leukocyte Negative Leu/uL (Negative); Nitrite Negative (Negative); Protein, Urine (Dipstick) 50 mg/dL (Neg-Trace); RBC/HPF 0-3 HPF (0-3); Specific Gravity, Urine 1.022 (1.002-1.036); Urobilinogen Normal mg/dL (Less than 2); WBC/HPF 0-3 HPF (0-3)
[2023-02-18 12:37] LABS: Pregnancy Test - Urine (BHCG) Negative (Negative); Pregu Control Background? CLEAR/WHITE (CLR/WHITE); Pregu Control Bar Appear? YES (CONTROL BAR); Specific Gravity 1.022 (1.002-1.036); Urine Culture Reflex No No
== END 2023-02-18 13:02 | disposition home or self-care (01) ==
LOC: ERS 09:25
DX: R10.13 Epigastric pain (principal); E11.9 Type 2 diabetes mellitus without complications; R74.9 Abnormal serum enzyme level, unspecified; E78.00 Pure hypercholesterolemia, unspecified; I10 Essential (primary) hypertension
CPT/HCPCS: 74177; 76705; 80053; 81001; 81025; 83690; 83880; 84484; 85025; 93005; 96372; 96374; J2270; J2405